=== PATIENT | female | born 1985 | race Caucasian/White ===

== ENCOUNTER → 2016-12-11 | Outpatient (CLI) | payer BC ==
[~2016-12-11] MED LIST: ACET-2890 PO; CYCL-375 PO; HYDR-4246 PO; IBUP200C42 PO; IOHEXOL 180 MG/ML 20ml INJECTION ONE; LIDOCAINE 1% (10mg/ml) 5ml VIAL ONE; MethylPREDNISolone ACETATE 40mg/1ml ONE
--- NOTE | 2016-12-11 17:34 | DI ---
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 The previous epidural did not provide significant relief for the patient. The details of the procedure, including the benefits, risks, and alternatives were explained to the patient. All of their questions were answered. They stated that they understood and wished to proceed. Informed consent was then obtained. A pre-procedural timeout was performed to confirm the correct patient and procedure. Utilizing aseptic technique, local lidocaine anesthetic, and fluoroscopic guidance throughout, a 22-gauge spinal needle was directed into the lumbar epidural space via an interlaminar approach at the L4-5 level. Contrast was injected to assure proper positioning of the needle tip. A fluoroscopic image was then taken and archived. Subsequently, 120 mg Depo-Medrol was injected into the epidural space. The patient tolerated the procedure well. IMPRESSION: Successful lumbar epidural steroid injection. Fluoroscopy dose: 8.44 mGy (Cumulative air kerma) Dimitry Krause RPA/LORAINE performed this under my personal supervision. .
== END ==
LOC: IMA 15:13
PROVIDERS: ATTEND Family Medicine
DX: M47.817 Spondylosis without myelopathy or radiculopathy, lumbosacral region (principal); M54.5 Low back pain
CPT/HCPCS: 62323; J1030; Q9965

== ENCOUNTER → 2016-12-25 | Outpatient (CLI) | payer BC ==
--- NOTE | 2016-12-25 17:05 | DI ---
Indication:ITS.REASON: M47.817 SPONDYLOSIS Procedure:EPIDURAL INJ.SPINE W FLUO CATH LUMBAR EPIDURAL INJECTION: The patient has low back and radicular pain. The previous epidural did not provide significant relief for the patient. The details of the procedure, including the benefits, risks, and alternatives were explained to the patient. All of their questions were answered. They stated that they understood and wished to proceed. Informed consent was then obtained. A pre-procedural timeout was performed to confirm the correct patient and procedure. Utilizing aseptic technique, local lidocaine anesthetic, and fluoroscopic guidance throughout, a 22-gauge spinal needle was directed into the lumbar epidural space via an interlaminar approach at the L4-5 level. Contrast was injected to assure proper positioning of the needle tip. A fluoroscopic image was then taken and archived. Subsequently, 120 mg Depo-Medrol was injected into the epidural space. The patient tolerated the procedure well. IMPRESSION: Successful lumbar epidural steroid injection. Fluoroscopy dose: 7.78 mGy (Cumulative air kerma) Dimitry Krause RPA/LORAINE performed this under my personal supervision. .
== END ==
LOC: IMA 15:22
PROVIDERS: ATTEND Family Medicine
DX: M47.817 Spondylosis without myelopathy or radiculopathy, lumbosacral region (principal); M54.5 Low back pain
CPT/HCPCS: 62323; J1030; Q9965

== ENCOUNTER → 2017-01-04 | Outpatient (CLI) | payer BC ==
[~2017-01-04] MED LIST changes: -IOHEXOL 180 MG/ML 20ml INJECTION ONE; -LIDOCAINE 1% (10mg/ml) 5ml VIAL ONE; -MethylPREDNISolone ACETATE 40mg/1ml ONE
--- NOTE | 2017-01-05 08:47 | DI ---
Indication: ITS.REASON: M54.16 RADICULOPATHY PROCEDURE: MRI LUMBAR SPINE W/O CONTRAST: Encounter: Initial Comparison: MRI lumbar spine dated February 23, 2015 Technique: Multiplanar multisequence MR imaging of the lumbar spine was performed without contrast. Findings: Mild scoliotic curvature of the lumbar spine. No acute fracture or subluxation. Bone marrow signal intensity is normal. Conus medullaris terminates normally at T12. The paraspinal soft tissues are within normal limits. Segmental analysis: L1-L2: Normal L2-L3: Normal L3-L4: Normal L4-L5: Large central disk protrusion measuring 12 x 8 mm on sagittal image #7 compressing the thecal sac causing severe central canal narrowing. There is also narrowing of the lateral recesses with mild right neural foraminal stenosis. This is significantly worsened from the comparison study. L5-S1: Normal Impression: Significant worsening in a large central disk protrusion at L4-L5 causing severe central canal narrowing and right neural foraminal narrowing. .
== END ==
LOC: IMA 17:09
PROVIDERS: ATTEND Family Medicine
DX: M51.16 Intervertebral disc disorders with radiculopathy, lumbar region (principal)